=== PATIENT | male | born 1975 | race Hispanic/Latino ===

== ENCOUNTER → 2019-04-28 | Outpatient (CLI) | payer OTHER | END | disposition home or self-care (01) | LOC: SLP 20:30 | DX: G47.33 Obstructive sleep apnea (adult) (pediatric) (principal); I10 Essential (primary) hypertension; E66.9 Obesity, unspecified; E11.51 Type 2 diabetes mellitus with diabetic peripheral angiopathy without gangrene; E78.5 Hyperlipidemia, unspecified; F17.200 Nicotine dependence, unspecified, uncomplicated; Z68.38 Body mass index [BMI] 38.0-38.9, adult; Z79.899 Other long term (current) drug therapy | CPT/HCPCS: 95810 ==

== ENCOUNTER → 2019-05-23 | Outpatient (CLI) | payer OTHER ==
--- NOTE | 2019-05-27 11:55 | NUR ---
Patient also stated in his comments: "I think I could [email or web address] from the machine [id number] my home." Addendum: 05/27/19 at 1156 by CHENG ZIMMER RT Amended: Links added.
== END | disposition home or self-care (01) ==
LOC: SLP 05-21 20:29
DX: G47.30 Sleep apnea, unspecified (principal)
CPT/HCPCS: 95811

== ENCOUNTER → 2022-03-09 | Outpatient (CLI) | payer OTHER | END | disposition home or self-care (01) | LOC: SHCH 09:47 | PROVIDERS: ATTEND Internal Medicine Cardiovascular Disease | DX: I11.9 Hypertensive heart disease without heart failure (principal); E78.5 Hyperlipidemia, unspecified | CPT/HCPCS: 93306 ==

== ENCOUNTER → 2024-03-28 | Outpatient (CLI) | payer BC ==
[2024-03-28 12:31] LABS: CREATININE 0.8 mg/dL (0.5-1.3); POTASSIUM 4.5 mmol/L (3.5-5.1)
== END | disposition home or self-care (01) ==
LOC: LAB 10:07
PROVIDERS: ATTEND Internal Medicine Cardiovascular Disease
DX: R00.2 Palpitations (principal)
CPT/HCPCS: 36415; 80048

== ENCOUNTER → 2024-03-31 | Outpatient (CLI) | payer BC ==
[~2024-03-31] MED LIST: IOHEXOL-350 50ML VIAL IV ONE
== END | disposition home or self-care (01) ==
LOC: RAH 09:46
PROVIDERS: ATTEND Internal Medicine Cardiovascular Disease
DX: J98.6 Disorders of diaphragm (principal); Z85.850 Personal history of malignant neoplasm of thyroid
CPT/HCPCS: 71270; Q9967